=== PATIENT | female | born 1985 ===

== ENCOUNTER 2018-01-27 18:52 | Emergency (ER) | payer BC ==
[2018-01-27 19:07] VITALS: BP 118/76; PULSE 80; RESP 16; TEMP 98.9; O2SAT 99
--- NOTE | 2018-01-27 20:33 | ED PDOC ---
Arrival/HPI - General Historian: Patient - History of Present Illness Time/Duration: < week Symptom Course: Worsening Activities at Onset: Rest Context: Home <Harman Alejandra - Last Filed: 01/28/18 03:17> <Art Brown DO - Last Filed: 01/28/18 05:46> - General Chief Complaint: ENT Problem Time Seen by Provider: 01/27/18 19:04 - History of Present Illness Narrative History of Present Illness (Text): This is a 33 year old female with no significant PMH presenting to the ER for 2 days of pain in the right ear and right side of the mouth. Patient woke up yesterday and found it difficult to swallow and had pain in the right side of the face and ear. Patient is able to tolerate food. Patient describes similar pain 6 months ago, and was given amoxicillin at that time with complete resolution of her symptoms. Patient was given augmentin yesterday, however pain worsened today. Patient denies fevers, chest pain, SOB, headaches, abdominal pain, dizziness, nausea, vomiting, sick contacts at home and recent travel. (Harman Alejandra) Past Medical History - Provider Review Nursing Documentation Reviewed: Yes - Cardiac Hx Cardiac Disorders: No - Pulmonary Hx Respiratory Disorders: No - Neurological Hx Neurological Disorder: No - HEENT Hx HEENT Disorder: Yes Other/Comment: PHARYNGITIS - Endocrine/Metabolic Hx Endocrine Disorders: No - Hematological/Oncological Hx Blood Disorders: No - Integumentary Hx Dermatological Disorder: No - Musculoskeletal/Rheumatological Hx Musculoskeletal Disorders: No - Gastrointestinal Hx Gastrointestinal Disorders: No - Genitourinary/Gynecological Hx Genitourinary Disorders: No - Psychiatric Hx Psychophysiologic Disorder: No Hx Substance Use: No <Harman Alejandra - Last Filed: 01/28/18 03:17> Family/Social History - Physician Review Nursing Documentation Reviewed: Yes Family/Social History: Unknown Family HX Smoking Status: Never Smoked Hx Alcohol Use: No Hx Substance Use: No <Harman Alejandra - Last Filed: 01/28/18 03:17> Allergies/Home Meds <Harman Alejandra - Last Filed: 01/28/18 03:17> <Art Brown DO - Last Filed: 01/28/18 05:46> Allergies/Adverse Reactions: Allergies No Known Allergies Allergy (Verified 01/27/18 18:58) Home Medications: Home Meds Medication Instructions Recorded Confirmed Amoxicillin/Clavulanate [Augmentin 1 tab PO BID 01/27/18 01/27/18 875 MG-125 MG Tab] Review of Systems - Physician Review All systems were reviewed & negative as marked: Yes - Review of Systems Constitutional: Normal Eyes: Normal. absent: Vision Changes, Photophobia, Eye Pain ENT: Normal. absent: Hearing Changes, Tinnitus, Sore Throat Respiratory: Normal. absent: Cough Cardiovascular: Normal. absent: Chest Pain, Palpitations Gastrointestinal: Normal. absent: Abdominal Pain Musculoskeletal: Normal Skin: Normal Neurological: Normal. absent: Headache, Dizziness, Focal Weakness, Facial Droop Endocrine: Normal Hemo/Lymphatic: Normal. absent: Adenopathy Psychiatric: Normal <Harman Alejandra - Last Filed: 01/28/18 03:17> Physical Exam Vital Signs Reviewed: Yes Temperature: Afebrile Blood Pressure: Normal Pulse: Regular Respiratory Rate: Normal Appearance: Positive for: Well-Appearing, Non-Toxic, Comfortable Pain Distress: None Mental Status: Positive for: Alert and Oriented X 3 - Systems Exam Head: Present: Atraumatic, Normocephalic Pupils: Present: PERRL Extroacular Muscles: Present: EOMI Conjunctiva: Present: Normal Ears: No: NORMAL TM, Erythema, TM Bulging Mouth: Present: Moist Mucous Membranes Pharnyx: Present: ERYTHEMA, Peritonsilar Swelling. No: Uvular Deviation, Muffled/Hoarse Voice Nose (Internal): Present: Normal Inspection Neck: Present: Normal Range of Motion Respiratory/Chest: Present: Clear to Auscultation, Good Air Exchange. No: Respiratory Distress, Accessory Muscle Use Cardiovascular: Present: Regular Rate and Rhythm, Normal S1, S2. No: Murmurs Abdomen: No: Tenderness, Distention, Peritoneal Signs Back: Present: Normal Inspection Upper Extremity: Present: Normal Inspection. No: Cyanosis, Edema Lower Extremity: Present: Normal Inspection. No: Edema Neurological: Present: Speech Normal, Motor Func Grossly Intact, Normal Sensory Function Skin: Present: Warm, Dry, Normal Color. No: Rashes Psychiatric: Present: Alert, Normal Insight, Normal Concentration <Harman Alejandra Last Filed: 01/28/18 03:17> Vital Signs Temp Pulse Resp BP Pulse Ox 01/27/18 20:20 98.9 F 80 16 118/76 99 01/27/18 18:59 98.9 F 80 16 118/76 99 Medical Decision Making <Harman Alejandra - Last Filed: 01/28/18 03:17> <Art Brown DO - Last Filed: 01/28/18 05:46> ED Course and Treatment: Impression: This is a 33 year old female presenting with 2 days of pain in the right side of face and ear secondary to likely tonsilar stones. Plan -Motrin -Removed 3 tonsillar stones measuring 2-3 mm in size. Progress: 01/27/18 20:37 (Harman Alejandra) - Medication Orders Current Medication Orders: Discontinued Medications Ibuprofen (Motrin Tab) 600 mg PO STAT STA Stop: 01/27/18 20:02 Last Admin: 01/27/18 20:17 Dose: 600 mg MAR Pain/Vitals Document 01/27/18 20:17 OCS (Rec: 01/27/18 20:18 [facility] [id number] Pain Reassessment Is This A Pain ReAssessment? No Sleep Is patient sleeping during reassessment? No Presence of Pain Presence of Pain Yes Pain Scale Used Pain Scale Used Numeric Location Pain Location Body Site Throat Description Constant Aggravating Factors ADL's Disposition/Present on Arrival - Present on Arrival Any Indicators Present on Arrival: No History of DVT/PE: No History of Uncontrolled Diabetes: No Urinary Catheter: No History of Decub. Ulcer: No History Surgical Site Infection Following: None - Disposition Have Diagnosis and Disposition been Completed?: Yes Disposition Time: 22:00 <Harman Alejandra - Last Filed: 01/28/18 03:17> - Disposition Disposition Time: 20:00 <Art Brown DO - Last Filed: 01/28/18 05:46> - Disposition Diagnosis: Tonsil stone Disposition: HOME/ ROUTINE Condition: IMPROVED Discharge Instructions (ExitCare): Sore Throat, Adult (DC) Additional Instructions: CECILIO SHUKLA, thank you for letting us take care of you today. Your provider was Art Brown DO and you were treated for PAIN ON (R) SIDE OF NECK. The emergency medical care you received today was directed at your acute symptoms. If you were prescribed any medication, please fill it and take as directed. It may take several days for your symptoms to resolve. Return to the Emergency Department if your symptoms worsen, do not improve, or if you have any other problems. Please contact your doctor or call one of the physicians/clinics you have been referred to that are listed on the Patient Visit Information form that is included in your discharge packet. Bring any paperwork you were given at discharge with you along with any medications you are taking to your follow up visit. Our treatment cannot replace ongoing medical care by a primary care provider outside of the emergency department. Thank you for allowing the [facility] team to be part of your care today. Use lemon candy to increase salivation. You may have more stones in your tonsils. Follow with Dr. Prado in 3-4 days for re-evaluation and further management. Prescriptions: Ibuprofen [Motrin] 600 mg PO Q6 PRN #20 tab PRN Reason: Pain, Moderate (4-7) Referrals: Sunny Prado Jr., MD [Primary Care Provider] - Follow up with primary Forms: [employer] ([place])
== END 2018-01-27 20:20 | disposition home or self-care (01) ==
LOC: ED 18:52
DX: J35.8 Other chronic diseases of tonsils and adenoids (principal)